=== PATIENT | female | born 1955 | race Caucasian/White ===

== ENCOUNTER 2018-09-14 10:59 | Outpatient (CLI) | payer OTHER ==
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
--- NOTE | 2018-09-14 15:05 | NUR ---
PATIENT DISCHARGED HOME AMBULATORY
== END 2018-09-14 15:05 | disposition home or self-care (01) ==
LOC: D.OPS 10:59
DX: K59.00 Constipation, unspecified (principal)